=== PATIENT | female | born 1975 | race Caucasian/White ===

== ENCOUNTER 2022-12-27 08:45 | Emergency (ER) | payer OTHER, SELFPAY ==
[2022-12-27] VITALS (13 sets, daily range): BP systolic 119–128; BP diastolic 77–93; PULSE 65–78; RESP 16; TEMP 36.3; O2SAT 98–100; BMI 29.5
--- NOTE | 2022-12-27 10:21 | CRLHL7_ITS ---
For Patients: As a result of the Century Cures Act, medical imaging exams and procedure reports are released immediately into your electronic medical record. You may view this report before your referring provider. If you have questions, please contact your health care provider. INDICATION: Abdominal pain, nausea. TECHNIQUE: CT abdomen and pelvis acquired with 98 cc Isovue 30 IV contrast. COMPARISON: None. FINDINGS: Lower chest: Unremarkable. Liver: Tiny cyst within the dome of the liver. The liver is otherwise unremarkable. Gallbladder and bile ducts: Unremarkable. No stones or inflammation. No biliary dilatation. Pancreas: Unremarkable. No mass or inflammation. Spleen: Unremarkable. Normal in size. No masses. Adrenal glands: Unremarkable. No nodules. Kidneys: Unremarkable. No suspicious masses, stones, or hydronephrosis. GI tract: Unremarkable. Normal in caliber. No sign of mass or inflammation. No appendicitis. Vasculature: Abdominal aorta is normal in caliber. Mesenteric arteries are patent. Lymph nodes: No lymphadenopathy. Peritoneum/Abdominal Wall: There is an old midline laparotomy scar. There are 3 hernia defects within the midline of the upper anterior abdominal wall, all containing fat. There is a 4.8 centimeter hernia defect located approximately 8 centimeters above the umbilicus a 1.5 centimeter right paramedian hernia defect approximately 10 centimeters above the umbilicus and a 2.2 centimeter right paramedian hernia defect approximately 13 centimeters above the umbilicus (axial images 58, 50 and 41 respectively. No bowel containing hernia is present. There is a 6 centimeter long radiodense tubular structure within the anterior abdominal subcutaneous fat of the upper abdomen likely retained catheter tube. Pelvis: The urinary bladder is unremarkable. No pelvic or adnexal mass is identified. Bones: Unremarkable for age. IMPRESSION: 1. No acute abdominal pelvic process. 2. Old midline anterior abdominal wall laparotomy scar with 3 hernia defects containing fat as detailed above. 3. 6 centimeter long radiodense tubular structure within the subcutaneous tissues of the anterior upper abdominal wall, likely retained catheter tube. Please note that all CT scans at this facility use dose modulation, iterative reconstruction, and/or weight-based dosing when appropriate to reduce radiation dose to as low as reasonably achievable. Dictated by Deon Birmingham MD @ 12/27/2022 11:50:34 AM (Electronically Signed)
--- NOTE | 2022-12-27 10:24 | ED.GIBLEED ---
HPI - GI Bleed General Chief complaint: GI Bleed Stated complaint: Throwing up blood, blood in stool Time Seen by Provider: 12/27/22 10:11 History of Present Illness HPI Narrative: Patient is a 47-year-old woman who presents with dark tarry emesis as well as dark tarry and bright red blood per rectum. Patient has had symptoms for several months. She states that she was diagnosed in [place] with gastric cancer and began oral chemotherapy. She was apparently diagnosed with an EGD. She was then seen subsequently in [facility] and told she did not have cancer in stop taking the chemotherapy. Patient does not have any heartburn symptoms. She has severe diffuse abdominal pain. She states that if she feels like she is being stabbed in the abdomen with a knife. She has had no pain with bowel movements. She has had no weight loss. She does not take anticoagulants. Does take 40 mg of omeprazole daily. Patient has really no other complaints such as chest pain shortness a breath orthopnea PND. Related Data Home Medications Medication Instructions Recorded Confirmed duloxetine 30 mg capsule,delayed 30 mg PO DAILY 12/27/22 12/27/22 release duloxetine 60 mg capsule,delayed 60 mg PO DAILY 12/27/22 12/27/22 release lorazepam 1 mg tablet 1 mg PO QPM insomnia 12/27/22 12/27/22 omeprazole 40 mg capsule,delayed 40 mg PO DAILY 12/27/22 12/27/22 release oxycodone-acetaminophen 10 mg-325 1 tab PO Q4H PRN 12/27/22 12/27/22 mg tablet Allergies Allergy/AdvReac Type Severity Reaction Status Date / Time droperidol Allergy Severe Hives Verified 12/27/22 09:01 ketorolac [From Toradol] Allergy Severe Hives Verified 12/27/22 09:01 meperidine [From Demerol] Allergy Severe Hives Verified 12/27/22 09:01 metoclopramide [From Reglan] Allergy Severe Hives Verified 12/27/22 09:01 morphine Allergy Severe Hives Verified 12/27/22 09:01 prochlorperazine Allergy Severe Hives Verified 12/27/22 09:01 [From Compazine] varenicline [From Chantix] Allergy Severe Hives Verified 12/27/22 09:13 dexamethasone [From Decadron] Allergy Hives Verified 12/27/22 09:13 estradiol Allergy Hives Verified 12/27/22 09:13 ketamine Allergy Hives Verified 12/27/22 09:13 nortriptyline Allergy Hives Verified 12/27/22 09:13 gabepentin Allergy Severe Uncoded 12/27/22 09:13 fentanyl patch AdvReac other Uncoded 12/27/22 09:13 Review of Systems Status of ROS: Reports: 10 or more systems reviewed and unremarkable except as noted in History and below [facility] Medical History (Updated 12/27/22 @ 12:06 by Yosi Whalen MD) Abdominal pain ?R10.9 - Unspecified abdominal pain (ICD-10) Anxiety ?F41.9 - Anxiety disorder, unspecified (ICD-10) Social History Smoking Status: Never smoker Do you use any of these nicotine containing products: None Second hand tobacco smoke exposure: No How often do you have a drink containing alcohol: never AUDIT-C Alcohol total score: 0 Non-prescribed substance use: marijuana (any form) service: No Exam Narrative: Exam Narrative: EXAM GENERAL: Patient appears uncomfortable. EYES: No scleral icterus. THYROID: no thyroid nodules or thyromegaly. LYMPH: No supraclavicular or cervical lymphadenopathy. SKIN: Visible skin seen during exam normal or with benign process only. EXT: No dependent lower extremity pedal edema. HEART: Regular rate and rhythm with no murmurs, rubs, or gallops. LUNGS: Clear to auscultation bilaterally with no crackles or wheezes. ABD: Mildly distended tender to palpation throughout hypoactive bowel sounds noted. PSYCH: Good eye contact, speech is not pressured. Const: Vital Signs, click to edit/add: Vital Signs - 24 hr 12/27/22 09:04 Temperature 97.3 F L Pulse Rate [Pulse Oximeter] 75 Respiratory Rate 16 Blood Pressure [Ri ght Upper Arm] 119/84 Pulse Oximetry 100 Oxygen Delivery Me thod Room Air Course Course Hospital Course: I am confused by her history. I will obtain records from [facility] in [place]. This time will proceed with CBC CMP amylase UA CT of the abdomen and pelvis. Vital Signs Vital signs: Initial Vital Signs Temperature 97.3 F L 12/27/22 09:04 Temperature Source Temporal Artery Scan 12/27/22 09:04 Pulse Rate 75 12/27/22 09:04 Pulse Rhythm Regular 12/27/22 09:04 Pulse Strength 3+ Normal 12/27/22 09:04 Respiratory Rate 16 12/27/22 09:04 Blood Pressure 119/84 12/27/22 09:04 Blood Pressure Mean 95 12/27/22 09:04 Blood Pressure Position Sitting 12/27/22 09:04 Pulse Oximetry 100 12/27/22 09:04 Oxygen Delivery Method Room Air 12/27/22 09:04 Vital Signs Temperature 97.3 F L 12/27/22 09:04 Pulse Rate 75 12/27/22 09:04 Respiratory Rate 16 12/27/22 09:04 Blood Pressure 119/84 12/27/22 09:04 Pulse Oximetry 100 12/27/22 09:04 Oxygen Delivery Method Room Air 12/27/22 09:04 Temperature 97.3 F L 12/27/22 09:04 Pulse Rate 75 12/27/22 09:04 Respiratory Rate 16 12/27/22 09:04 Blood Pressure 119/84 12/27/22 09:04 Pulse Oximetry 100 12/27/22 09:04 Oxygen Delivery Method Room Air 12/27/22 09:04 MDM - GI Bleed MDM Narrative Medical decision making narrative: Patient is a 47-year-old woman who presents with abdominal pain and blood in her stool and vomit. Was initially very confused by her evaluation however I was able to get records from [facility] patient's left AMA a number times from local facilities. Review of her record shows that she has chronic migraines chronic abdominal pain hydrocephalus status post shunting diverticulitis gastritis gastric ulcer with perforation in the past with normal EGD as recently as in August 2022 with another reasonably normal study in May of 2020 to. She does have a chronic ventral hernia restless leg syndrome kidney stones and depression with anxiety. Evaluation here in the emergency room included normal saline bolus given IV Zofran given and 0.5 mg of IV Dilaudid. CT of the abdomen pelvis showed no acute intra-abdominal processes. Laboratory studies are stable. I do not find any significant pathology patient appears to be fairly stable needs outpatient follow-up. No significant GI blood loss has been noted. Differential Diagnosis Differential diagnosis: Likely hemorrhoids, infectious diarrhea, esophageal varices, gastritis, Fadumo-Rivera syndrome, Upper gastrointestinal hemorrhage, Lower gastrointestinal hemorrhage, hematochezia, melena and anal fissure Lab Data Labs: Lab Results 12/27/22 Range/Units 10:30 WBC 7.11 (4.50-11.00) K/uL RBC 4.15 (4.00-5.20) m/uL Hgb 12.1 (12.0-16.0) gm/dL Hct 37.2 (33.0-51.0) % MCV 90 (80-100) fL MCH 29 (26-34) pg MCHC 33 (32-36) gm/dL RDW Coeff of Leodan 13.7 (11.5-15.5) % Plt Count 308 (140-440) K/uL Neut % (Auto) 46.2 (42.0-72.0) % Lymph % (Auto) 44.4 H (20-44) % Kern % (Auto) 7.2 (0.0-11.0) % Eos % (Auto) 1.8 (0.0-7.0) % Baso % (Auto) 0.3 (0.0-3.0) % Neut # (Auto) 3.28 (1.7-7.0) K/uL Lymph # (Auto) 3.20 H (0.90-2.90) K/uL Kern # (Auto) 0.50 (0.00-0.90) K/UL Eos # (Auto) 0.13 (0.00-0.50) K/uL Baso # (Auto) 0.02 (0.00-0.30) K/uL Sodium 140 (135-149) mmol/L Potassium 4.4 (3.6-5.1) mmol/L Chloride 111 (96-114) mmol/L Carbon Dioxide 22 (20-32) mmol/L BUN 15 (5-24) mg/dL Creatinine 0.6 (0.5-1.5) mg/dL Estimated Creat Clear 122.44 Estimated GFR 112 ml/min Glucose 115 (60-115) mg/dL Calcium 8.7 (8.4-10.6) mg/dL Total Bilirubin 0.3 (0.1-1.5) mg/dL AST 20 (12-35) U/L ALT 21 (4-35) U/L Alkaline Phosphatase 95 (40-150) U/L Total Protein 7.2 (6.0-8.3) g/dL Albumin 4.1 (3.3-5.0) g/dL Amylase 64 (18-89) U/L Discharge Plan Discharge Clinical Impression: Abdominal pain Patient Disposition: Home, Self-Care Condition: Stable Instructions: Abdominal Pain (ED) Additional Instructions: Continue current medications. Tylenol as needed for pain. You have very complex history and I would recommend follow-up with a single outpatient primary care physician who could work straight your care moving forward. Return local ER if symptoms worsen. Activity Level: No Restrictions Discharge Diet: Regular Prescriptions: No Action duloxetine 30 mg capsule,delayed release(DR/EC) 30 mg PO DAILY duloxetine 60 mg capsule,delayed release(DR/EC) 60 mg PO DAILY oxycodone-acetaminophen 10-325 mg tablet 1 tab PO Q4H PRN lorazepam 1 mg tablet 1 mg PO QPM omeprazole 40 mg capsule,delayed release(DR/EC) 40 mg PO DAILY Stand Alone Forms: [employer] Info Instructions
[2022-12-27 10:42] LABS: Basophils Absolute Auto 0.02 K/uL (0.00-0.30); Basophils Percent Auto 0.3 % (0.0-3.0); Eosinophils Absolute Auto 0.13 K/uL (0.00-0.50); Eosinophils Percent Auto 1.8 % (0.0-7.0); Hematocrit 37.2 % (33.0-51.0); Hemoglobin* 12.1 gm/dL (12.0-16.0); Immature Granulocytes Abs Auto 0.01 K/uL (0.00-0.30); Immature Granulocytes Pct Auto 0.1 %; Lymphocytes Percent Auto 44.4 % (20-44); Mean Corpuscular HGB Conc 33 gm/dL (32-36); Mean Corpuscular Hemoglobin 29 pg (26-34); Mean Corpuscular Volume 90 fL (80-100); Monocytes Percent Auto 7.2 % (0.0-11.0); Neutrophils Absolute Auto 3.28 K/uL (1.7-7.0); Neutrophils Percent Auto 46.2 % (42.0-72.0); Platelet Count* 308 K/uL (140-440); RDW Coefficient of Variation % 13.7 % (11.5-15.5); Red Blood Count 4.15 m/uL (4.00-5.20); White Blood Count* 7.11 K/uL (4.50-11.00)
[2022-12-27 10:46] LABS: Slide Review Reflex No
[2022-12-27 10:55] LABS: Albumin* 4.1 g/dL (3.3-5.0)
[2022-12-27 10:56] LABS: Chloride* 111 mmol/L (96-114); Potassium* 4.4 mmol/L (3.6-5.1); Sodium* 140 mmol/L (135-149)
[2022-12-27 10:58] LABS: Amylase* 64 U/L (18-89); Bilirubin Total* 0.3 mg/dL (0.1-1.5); Carbon Dioxide* 22 mmol/L (20-32); Creatinine* 0.6 mg/dL (0.5-1.5); Est. Creatinine Clearance* 122.44; Estimated Glomerular Filt Rate 112 ml/min; Total Protein* 7.2 g/dL (6.0-8.3)
[2022-12-27 10:59] LABS: Alanine Aminotransferase* 21 U/L (4-35); Alkaline Phosphatase* 95 U/L (40-150); Aspartate Amino Transferase* 20 U/L (12-35); Blood Urea Nitrogen* 15 mg/dL (5-24); Calcium* 8.7 mg/dL (8.4-10.6); Glucose* 115 mg/dL (60-115)
[2022-12-27] MEDS: HYDROmorphone 0.5 mg/0.5 ml inj IVP (12:00)
[2022-12-27] MEDS: ONDANSETRON 2 MG/ML inj 4 MG IVP (12:00)
[2022-12-27] MEDS: 0.9 % SODIUM CHLORIDE 1000 ml 1,000 ML IV (12:01)
--- NOTE | 2022-12-27 12:23 | ED.NURSE ---
Patient was discharged. Patient did not want to wait for her fluids to be finished. She stated I am not nauseous anymore so i will be able to drink something at home. Patient wants to establish primary care here and so phone number for Dr. Whalen given to her. She will call and make an appointment to follow up with him. PIV taken out and catheter intact.
== END 2022-12-27 12:24 | disposition home or self-care (01) ==
PROVIDERS: Emergency Provider Internal Medicine
DX: R10.9 Unspecified abdominal pain (principal)
CPT/HCPCS: 36415; 74177; 80053; 81003; 82150; 85025; 96374; 96375; 99283; 99284; J1170; J2405; J7030; Q9967

== ENCOUNTER 2023-01-21 09:54 | Outpatient (CLI) | payer OTHER, SELFPAY ==
--- NOTE | 2023-01-21 12:22 | W.ANESCHARGE ---
Anesthesia Charges Start Date/Time Anesthesia Start Date: 01/21/23 Anesthesia Start Time: 11:40 Stop Date/Time Anesthesia Stop Date: 01/21/23 Anesthesia Stop Time: 12:20
--- NOTE | 2023-01-21 12:22 | W.ANESCHARGE ---
Anesthesia Charges Start Date/Time Anesthesia Start Date: 01/21/23 Anesthesia Start Time: 11:40 Stop Date/Time Anesthesia Stop Date: 01/21/23 Anesthesia Stop Time: 12:20
== END 2023-01-21 09:55 | disposition home or self-care (01) ==
LOC: OP CLINIC 09:55
PROVIDERS: Visit Provider Surgery
DX: Z12.11 Encounter for screening for malignant neoplasm of colon (principal)
CPT/HCPCS: 45378; 812; J2704

== ENCOUNTER 2023-01-28 17:02 | Emergency (ER) | payer OTHER, SELFPAY ==
[2023-01-28 17:08] VITALS: BP 140/84; PULSE 81; RESP 16; TEMP 36.4; O2SAT 99
== END 2023-01-28 19:00 | disposition left against medical advice (07) ==
DX: Z53.21 Procedure and treatment not carried out due to patient leaving prior to being seen by health care provider (principal)